=== PATIENT | female | born 1995 | race Caucasian/White ===

== ENCOUNTER 2016-10-23 01:48 | Inpatient (IN) | payer OTHER, BC ==
[2016-10-23] MEDS ORDERED: Ampicillin 2 GM in Sodium Chloride 0.9% 100 ML IV ONE (02:15)
[2016-10-23] MEDS ORDERED: Sodium Chloride 0.9% 2.5 ML Syringe FLUSH PRN (02:15)
[2016-10-23] MEDS ORDERED: Lidocaine 1% 50 ML MDV INJECT PRN (02:15)
[2016-10-23] MEDS ORDERED: Sodium Chloride 0.9% 10 ML Syringe FLUSH PRN (02:15)
[2016-10-23] MEDS ORDERED: Butorphanol 1 MG/ML SDV IVPUSH PRN (02:15)
[2016-10-23] MEDS ORDERED: Methylergonovine 0.2 MG/1 ML Amp IM PRN (02:15)
[2016-10-23] MEDS ORDERED: Misoprostol 200 MCG Tab PO PRN (02:15)
[2016-10-23] MEDS ORDERED: Water For Irrigation,Sterile 1,000 ML Container IRR PRN (02:15)
[2016-10-23] MEDS ORDERED: Carboprost Tromethamine 250 MCG/1 ML Amp IM PRN (02:15)
[2016-10-23] MEDS ORDERED: Oxytocin/Lactated Ringers 30 UNIT/500 ML BAG IV SCH ×2 (02:15→13:00)
[2016-10-23] MEDS ORDERED: Nalbuphine 10 MG/1 ML Vial IVPUSH PRN (02:15)
[2016-10-23] MEDS: Lactated Ringers 1,000 ML IV SCH ×5 (02:35→13:01)
--- NOTE | 2016-10-23 05:54 | PCM.PREANE ---
Preanesthetic Assessment - Procedure Proposed Procedure: BREANA - Anesthesia/Transfusion/Family Hx Anesthesia History: Prior Anesthesia Without Reaction Transfusion History: No Prior Transfusion(s) - Review of Systems General: No Symptoms Pulmonary: No Symptoms Cardiovascular: No Symptoms Gastrointestinal: No Symptoms Neurological: No Symptoms Other: Reports: None - Physical Assessment Height: 1.63 m Weight: 75.296 kg ASA Class: 1 Mental Status: Alert & Oriented x3 Dentition: Reports: Normal Dentition ROM/Head Extension: Full Lungs: Clear to Auscultation, Normal Respiratory Effort Cardiovascular: Regular Rate, Regular Rhythm - Lab Values: Laboratory Last Values WBC 12.46 K/uL (4.0-11.0) H 10/23/16 02:29 RBC 3.30 M/uL (4.30-5.90) L 10/23/16 02:29 Hgb 10.3 g/dL (12.0-16.0) L 10/23/16 02:29 Hct 30.6 % (36.0-46.0) L 10/23/16 02:29 MCV 92.7 fL (80.0-98.0) 10/23/16 02:29 MCH 31.2 pg (27.0-32.0) 10/23/16 02:29 MCHC 33.7 g/dL (31.0-37.0) 10/23/16 02:29 RDW Std Deviation 46.6 fl (28.0-62.0) 10/23/16 02:29 RDW Coeff of Kena 14 % (11.0-15.0) 10/23/16 02:29 Plt Count 211 K/uL (150-400) 10/23/16 02:29 MPV 10.20 fL (7.40-12.00) 10/23/16 02:29 Nucleated RBC % 0.0 /100WBC 10/23/16 02:29 Nucleated RBCs # 0 K/uL 10/23/16 02:29 Blood Type O POSITIVE 10/23/16 02:29 Antibody Screen NEGATIVE 10/23/16 02:29 - Allergies Allergies/Adverse Reactions: Allergies Allergy/AdvReac Type Severity Reaction Status Date / Time No Known Allergies Allergy Verified 05/04/14 09:14 - Blood Blood Available: Yes Product(s) Available: PRBC - Anesthesia Plan Pre-Op Medication Ordered: None - Acknowledgements Anesthesia Type Planned: Epidural Pt an Appropriate Candidate for the Planned Anesthesia: Yes Alternatives and Risks of Anesthesia Discussed w Pt/Guardian: Yes Pt/Guardian Understands and Agrees with Anesthesia Plan: Yes PreAnesthesia Questionnaire - Past Health History Medical/Surgical History: Denies Medical/Surgical History HEENT History: Reports: None Cardiovascular History: Reports: None Respiratory History: Reports: None Gastrointestinal History: Reports: None Genitourinary History: Reports: None 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: Musculoskeletal History: Reports: Fracture Neurological History: Reports: Migraines Psychiatric History: Reports: None Hematologic History: Reports: None - Infectious Disease History Infectious Disease History: Reports: Chicken Pox - Past Surgical History HEENT Surgical History: Reports: Other (See Below) Other HEENT Surgeries/Procedures: wisdom teeth extracted Musculoskeletal Surgical History: Reports: ORIF Other Musculoskeletal Surgeries/Procedures:: ORIF left elbow - SUBSTANCE USE Smoking Status *Q: Former Smoker Tobacco Use Within Last Twelve Months: No, Cigarettes Second Hand Smoke Exposure: No Recreational Drug Use History: No - HOME MEDS Home Medications: Home Meds Acetaminophen [Tylenol Extra Strength] 500 mg PO Q4H PRN #1 tablet 09/16/14 [Rx] Ibuprofen [Motrin] 400 mg PO Q4H PRN #1 tablet 09/16/14 [Rx] Lanolin [Lansinoh HPA] 1 g TOP ASDIRECTED PRN #1 crm 09/16/14 [Rx] - CURRENT (IN HOUSE) MEDS Current Meds: Current Medications Butorphanol Tartrate (Stadol) 1 mg IVPUSH Q1H PRN PRN Reason: Pain Last Admin: 10/23/16 03:14 Dose: 1 mg Carboprost Tromethamine (Hemabate Ds) 250 mcg IM ASDIRECTED PRN PRN Reason: Post Hemorrhage Lactated Ringer's (Ringers, Lactated) 1,000 mls @ 150 mls/hr IV ASDIRECTED INESSA Last Admin: 10/23/16 05:43 Dose: 999 mls/hr Ampicillin Sodium 1 gm/ Sodium (Chloride) 50 mls @ 100 mls/hr IV Q4H INESSA Lidocaine HCl (Xylocaine 1%) 50 ml INJECT .ONCE PRN PRN Reason: Laceration repair Methylergonovine Maleate (Methergine) 0.2 mg IM ASDIRECTED PRN PRN Reason: Post Hemorrhage Misoprostol (Cytotec) 200 mcg PO .ONCE PRN PRN Reason: Post Hemorrhage Nalbuphine HCl (Nubain) 10 mg IVPUSH Q1H PRN PRN Reason: Pain (severe 7-10) Sodium Chloride (Saline Flush) 10 ml FLUSH ASDIRECTED PRN PRN Reason: Keep Vein Open Sodium Chloride (Saline Flush) 2.5 ml FLUSH ASDIRECTED PRN PRN Reason: Keep Vein Open Sterile Water (Sterile Water For Irrigation) 1,000 ml IRR ASDIRECTED PRN PRN Reason: delivery Discontinued Medications Ampicillin Sodium 2 gm/ Sodium (Chloride) 100 mls @ 200 mls/hr IV ONETIME ONE Stop: 10/23/16 02:44 Last Admin: 10/23/16 02:54 Dose: 200 mls/hr Oxytocin/Lactated Ringer's (Pitocin In Lr 30 Units/500 Ml) 30 unit in 500 mls @ 500 mls/hr IV TITRATE INESSA Stop: 10/23/16 03:14
[2016-10-23] MEDS ORDERED: fentaNYL 100 MCG/2 ML SDV ONE (05:56)
[2016-10-23] MEDS ORDERED: Ropivacaine HCl/PF 100 ML ONE ×2 (05:57→14:25)
[2016-10-23] MEDS: Ampicillin 1 GM in Sodium Chloride 0.9% 50 ML IV SCH ×3 (07:04→14:58)
[2016-10-23] MEDS ORDERED: Bupivacaine 0.5% 10 ML SDV ONE (11:47)
[2016-10-23] MEDS ORDERED: Ondansetron 4 MG/2 ML SDV IVPUSH ONE (13:09)
[2016-10-23] MEDS ORDERED: Witch Hazel Medicated Pads 40/Jar TOP PRN (18:04)
[2016-10-23] MEDS ORDERED: Lanolin 100% Cream 7 GM Tube TOP PRN (18:04)
[2016-10-23] MEDS ORDERED: Benzocaine/Menthol 20%-0.5% Spray 78 GM Cannister TOP PRN (18:04)
[2016-10-23] MEDS ORDERED: Acetaminophen 500 MG Tab PO PRN ×2 (18:04)
[2016-10-23] MEDS ORDERED: oxyCODONE 5 MG Tab PO PRN (18:04)
[2016-10-23] MEDS ORDERED: Docusate Sodium 100 MG Cap PO PRN (18:04)
[2016-10-23] MEDS ORDERED: Bisacodyl 10 MG Supp RECTAL PRN (18:04)
[2016-10-23] MEDS ORDERED: Ibuprofen 400 MG Tab PO PRN (18:04)
[2016-10-23] MEDS: Ibuprofen 800 MG Tab PO PRN (18:44)
--- NOTE | 2016-10-24 01:04 | OR ---
SURGEON: Lexie Wadsworth MD DAIRY EQUIPMENT MECHANIC: Josué Lundy MS-4 DATE OF PROCEDURE: 10/23/2016 PREOPERATIVE DIAGNOSES: 1. Term at 39 weeks and 5 days. 2. Spontaneous labor. 3. Group B Streptococcus positive. POSTOPERATIVE DIAGNOSES: 1. Term at 39 weeks and 5 days. 2. Spontaneous labor. 3. Group B Streptococcus positive. 4. Delivered. PROCEDURES: 1. Spontaneous vaginal delivery. 2. Repair of second-degree perineal laceration. ANESTHESIA: Epidural. ESTIMATED BLOOD LOSS: 150 mL. COMPLICATIONS: None. DISPOSITION: Mother and baby stable in Labor and Delivery room, [facility]. FINDINGS: Male infant, weight 3840 g, score 8 and 9 at one and five minutes respectively. Loose nuchal cord x1. Grossly normal placenta with 3-vessel cord. Midline second-degree perineal laceration. BRIEF HISTORY: Yolanda is a 21-year-old, G4, P1-0-2-1, who presented early hours of the morning today at 39 weeks and 5 days in spontaneous labor. On admission, she was found to be 6 cm dilated, 70% effaced. She was admitted with routine intrapartum orders. Antibiotics were commenced for a positive GBS screen. She made slow progress, and 4 hours later, she was 7 cm dilated with bulging membranes. Artificial rupture of membranes was performed with clear amniotic fluid noted. Three hours later, she had made approximately 1 cm change in cervical dilatation. At this time, oxytocin augmentation was commenced after discussion with the patient. She then slowly progressed to full dilatation at a maximum dose of Oxytocin of 8mu/min and then commenced active pushing. She pushed for about 45 minutes bringing the baby's head down to a +4 station and was set up for delivery in modified dorsal lithotomy position. PROCEDURE DETAILS: She had a spontaneous vaginal delivery of a live male in direct occiput anterior position, clear amniotic fluid at delivery. Loose nuchal cord x1, easily reduced. Anterior and the posterior shoulders and the rest of the baby were delivered without difficulty. Baby was vigorous and cried spontaneously at . The baby was delivered onto the maternal abdomen in the presence of the attendant nursery nurse. Cord was double clamped after it had ceased pulsating and then cut by the father of the baby. With the delivery of the , oxytocin infusion was changed to titration for active management of third stage of labor. Cord blood and gas samples were obtained. Placenta was delivered by controlled cord traction, appeared to be complete and intact. Perineal examination was performed which revealed a second-degree laceration midline without extension.The laceration was repaired in 3 layers using 3-0 Vicryl suture. Uterine massage was performed. The uterus was found to be well contracted below the umbilicus. The patient tolerated the procedure well. Sponge, instrument, and needle counts were correct at the end of the delivery. ADUMVIV / MODL /[id number] MTDD
[2016-10-24] MEDS: Ibuprofen 800 MG Tab PO PRN ×2 (04:40→13:50)
--- NOTE | 2016-10-24 07:46 | PCM.PNPP ---
- General Info Date of Service: 10/24/16 Functional Status: Reports: Pain Controlled, Tolerating Diet, Ambulating, Urinating - Review of Systems General: Denies: Fever, Weakness, Chills Pulmonary: Denies: Shortness of Breath, Pleuritic Chest Pain Cardiovascular: Denies: Chest Pain, Palpitations, Dyspnea on Exertion Gastrointestinal: Denies: Abdominal Pain Genitourinary: Denies: Dysuria, Incontinence Neurological: Denies: Headache Psychiatric: Denies: Depression, Mood Lability - General Info Date of Service: 10/24/16 - Patient Data Vital Signs - Most Recent: Last Vital Signs Temp 36.7 C 10/24/16 04:00 Pulse 67 10/24/16 04:00 Resp 16 10/24/16 04:00 BP 107/57 L 10/24/16 04:00 Pulse Ox 97 10/24/16 04:00 Weight - Most Recent: 166 lb Lab Results - Last 24 Hours: Laboratory Results - last 24 hr 10/24/16 Range/Units 04:52 Hgb 9.5 L (12.0-16.0) g/dL Hct 28.3 L (36.0-46.0) % Med Orders - Current: Current Medications Acetaminophen (Tylenol Extra Strength) 500 mg PO Q4H PRN PRN Reason: Pain Acetaminophen (Tylenol Extra Strength) 1,000 mg PO Q4H PRN PRN Reason: Pain Benzocaine/Menthol (Dermoplast Pain Relief 20%-0.5% Astatula) 78 gm TOP ASDIRECTED PRN PRN Reason: Perineal Comfort Measure Last Admin: 10/23/16 18:43 Dose: 1 can Bisacodyl (Dulcolax) 10 mg RECTAL .ONCE PRN PRN Reason: Constipation Docusate Sodium (Colace) 100 mg PO BID PRN PRN Reason: Constipation Emollient Ointment (Lansinoh Hpa) 0 gm TOP ASDIRECTED PRN PRN Reason: Sore Nipples Ibuprofen (Motrin) 400 mg PO Q4H PRN PRN Reason: Pain Ibuprofen (Motrin) 800 mg PO Q6H PRN PRN Reason: Pain Last Admin: 10/24/16 04:40 Dose: 800 mg Oxycodone HCl (Oxycodone) 5 mg PO Q2H PRN PRN Reason: Pain Witch Rossana (Tucks) 1 pad TOP ASDIRECTED PRN PRN Reason: comfort care Last Admin: 10/23/16 18:44 Dose: 1 tub Discontinued Medications Bupivacaine HCl (Sensorcaine-Mpf 0.5%) Confirm Administered Dose 10 ml .ROUTE .STK-MED ONE Stop: 10/23/16 11:48 Last Admin: 10/24/16 02:28 Dose: Not Given Butorphanol Tartrate (Stadol) 1 mg IVPUSH Q1H PRN PRN Reason: Pain Last Admin: 10/23/16 03:14 Dose: 1 mg Carboprost Tromethamine (Hemabate Ds) 250 mcg IM ASDIRECTED PRN PRN Reason: Post Hemorrhage Fentanyl (Sublimaze) Confirm Administered Dose 100 mcg .ROUTE .STMyrio Solution-MED ONE Stop: 10/23/16 05:57 Last Admin: 10/24/16 02:28 Dose: Not Given Ampicillin Sodium 2 gm/ Sodium (Chloride) 100 mls @ 200 mls/hr IV ONETIME ONE Stop: 10/23/16 02:44 Last Admin: 10/23/16 02:54 Dose: 200 mls/hr Lactated Ringer's (Ringers, Lactated) 1,000 mls @ 150 mls/hr IV ASDIRECTED INESSA Last Admin: 10/23/16 13:01 Dose: 150 mls/hr Oxytocin/Lactated Ringer's (Pitocin In Lr 30 Units/500 Ml) 30 unit in 500 mls @ 500 mls/hr IV TITRATE INESSA Stop: 10/23/16 03:14 Last Admin: 10/24/16 02:25 Dose: Not Given Ampicillin Sodium 1 gm/ Sodium (Chloride) 50 mls @ 100 mls/hr IV Q4H INESSA Last Admin: 10/23/16 14:58 Dose: 100 mls/hr Ropivacaine (Naropin 0.2%) Confirm Administered Dose 100 mls @ as directed .ROUTE .STMyrio Solution-MED ONE Stop: 10/23/16 05:58 Last Admin: 10/24/16 02:28 Dose: Not Given Oxytocin/Lactated Ringer's (Pitocin In Lr 30 Units/500 Ml) 30 unit in 500 mls @ 2 mls/hr IV TITRATE INESSA; 2 MUNITS/MIN PRN Reason: Protocol Last Titration: 10/23/16 14:49 Dose: 8 munits/min, 8 mls/hr Ropivacaine (Naropin 0.2%) Confirm Administered Dose 100 mls @ as directed .ROUTE .STK-MED ONE Stop: 10/23/16 14:26 Last Admin: 10/24/16 02:28 Dose: Not Given Lidocaine HCl (Xylocaine 1%) 50 ml INJECT .ONCE PRN PRN Reason: Laceration repair Methylergonovine Maleate (Methergine) 0.2 mg IM ASDIRECTED PRN PRN Reason: Post Hemorrhage Misoprostol (Cytotec) 200 mcg PO .ONCE PRN PRN Reason: Post Hemorrhage Nalbuphine HCl (Nubain) 10 mg IVPUSH Q1H PRN PRN Reason: Pain (severe 7-10) Ondansetron HCl (Zofran) 4 mg IVPUSH ONETIME ONE Stop: 10/23/16 13:10 Last Admin: 10/23/16 13:23 Dose: 4 mg Sodium Chloride (Saline Flush) 10 ml FLUSH ASDIRECTED PRN PRN Reason: Keep Vein Open Sodium Chloride (Saline Flush) 2.5 ml FLUSH ASDIRECTED PRN PRN Reason: Keep Vein Open Sterile Water (Sterile Water For Irrigation) 1,000 ml IRR ASDIRECTED PRN PRN Reason: delivery Last Admin: 10/23/16 17:28 Dose: 1,000 ml - Interaction Disposition, : [place] in Room with Family Feeding: Bottle Fed Support Person: Significant Other - Recovery Exam Fundal Tone: Firm Fundal Level: 1 Fingerbreadths Below Umbilicus Fundal Placement: Midline Lochia Amount: Scant Lochia Color: Rubra/Red Bladder Status: Voiding Urinary Elimination: Voided - Exam General: Alert, Oriented Neck: Supple Lungs: Clear to Auscultation, Normal Respiratory Effort Cardiovascular: Regular Rate, Regular Rhythm GI/Abdominal Exam: Normal Bowel Sounds Extremities: Non-Tender, Pedal Edema Skin: Warm Psy/Mental Status: Alert, Normal Affect, Normal Mood - Problem List & Annotations (1) Vaginal delivery SNOMED Code(s): 452359064 Code(s): O80 - ENCOUNTER FOR FULL-TERM UNCOMPLICATED DELIVERY Status: Acute Current Visit: No - Problem List Review Problem List Initiated/Reviewed/Updated: Yes - My Orders Last 24 Hours: My Active Orders 10/23/16 18:04 Patient Status [ADT] Routine May Shower [RC] ASDIRECTED Up ad Shreya [RC] ASDIRECTED Vital Signs [RC] PER UNIT ROUTINE Acetaminophen [Tylenol Extra Strength] 1,000 mg PO Q4H PRN Acetaminophen [Tylenol Extra Strength] 500 mg PO Q4H PRN Benzocaine/Menthol [Dermoplast Pain Relief 20%-0.5% Astatula] 78 gm TOP ASDIRECTED PRN Bisacodyl [Dulcolax] 10 mg RECTAL .ONCE PRN Docusate Sodium [Colace] 100 mg PO BID PRN Ibuprofen [Motrin] 400 mg PO Q4H PRN Ibuprofen [Motrin] 800 mg PO Q6H PRN Lanolin [Lansinoh HPA] See Dose Instructions TOP ASDIRECTED PRN Witch Rossana [Tucks] 1 pad TOP ASDIRECTED PRN oxyCODONE 5 mg PO Q2H PRN Assess Lochia [WOMSER] Per Unit Routine Assess Uterine Involution [WOMSER] Per Unit Routine Breast Pump [WOMSER] Per Unit Routine Peripheral IV Discontinue [OM.PC] Routine Resuscitation Status Routine 10/23/16 18:06 Perineal Care [OM.PC] Per Unit Routine - Assessment Assessment:: PPD#1 s/p , stable and afebrile Clinically stable to be discharged - Plan Plan:: Discharge instructions reviewed Nothing in the vagina for 6 weeks Bleeding and infection precautions reviewed Continue PNV S/S of depression reviewed Follow up in 6 weeks
[2016-10-24 08:25] VITALS: BP 103/63
--- NOTE | 2016-10-24 09:06 | PCM48HPAN ---
Post Anesthesia Note - EVALUATION WITHIN 48HRS OF ANESTHETIC Vital Signs in Normal Range: Yes Patient Participated in Evaluation: Yes Respiratory Function Stable: Yes Airway Patent: Yes Cardiovascular Function Stable: Yes Hydration Status Stable: Yes Pain Control Satisfactory: Yes Nausea and Vomiting Control Satisfactory: Yes Mental Status Recovered: Yes
== END 2016-10-24 18:46 | disposition home or self-care (01) | DRG 560 ==
LOC: MW.OBCHECK 01:48 → MW.OB 01:52 → MW.OBCHECK 02:15 → MW.OB 02:15 → OBSVTOIN 17:28
PROVIDERS: ADMIT Obstetrics & Gynecology; ATTEND Obstetrics & Gynecology
PROC: 10E0XZZ Delivery of Products of Conception, External Approach (ICD-10-PCS; principal; 2016-10-23)
PROC: 10907ZC Drainage of Amniotic Fluid, Therapeutic from Products of Conception, Via Natural or Artificial Opening (ICD-10-PCS; 2016-10-23)
PROC: 0KQM0ZZ Repair Perineum Muscle, Open Approach (ICD-10-PCS; 2016-10-23)
DX: O70.1 Second degree perineal laceration during delivery (principal); O99.824 Streptococcus B carrier state complicating childbirth; Z3A.39 39 weeks gestation of pregnancy; Z37.0 Single live birth
CPT/HCPCS: 36415; 59025; 85014; 85018; 85027; 86850; 86900; 86901; A9270-GY; J0290; J0595; J2405; J2795; J3010; J7030; J7050; J7120

== ENCOUNTER 2024-01-15 13:38 | Emergency (ER) | payer SELFPAY ==
[2024-01-15] MEDS: Ketorolac 30 MG/ML SDV IM ONE (14:29)
[2024-01-15 15:09] VITALS: BP 105/67; PULSE 87
== END 2024-01-15 15:08 | disposition home or self-care (01) ==
LOC: MW.ED 13:38
DX: M70.22 Olecranon bursitis, left elbow (principal)
CPT/HCPCS: 73080; 96372; 99283; J1885